=== PATIENT | female | born 1970 | race Hispanic/Latino ===

== ENCOUNTER 2019-12-09 15:32 | Emergency (ER) | payer BC, SELFPAY ==
[2019-12-09] MEDS ORDERED: LORazepam 2 MG/ML VIAL ONE (16:26)
[2019-12-09] MEDS ORDERED: KETOROLAC 30 MG/ML INJ ONE (16:26)
[2019-12-09] MEDS ORDERED: NA CHLORIDE 0.9% 1,000 ML ONE (16:26)
[2019-12-09 17:09] LABS: Absolute Lymphocytes (CBC) 4.8 K/uL (0.7-4.9); Basophils % 0.7 % (0-1.3); Hematocrit 36.8 % (36.0-45.0); Lymphocytes % 59.8 % (15.3-44.8); MPV 8.3 fL (7.6-11.3); RBC Red Blood Cell Count 4.02 M/uL (3.86-4.86)
[2019-12-09 17:25] LABS: Albumin 2.9 g/dL (3.4-5.0); Bilirubin Direct 0.3 mg/dL (0-0.2); Bilirubin Total 0.6 mg/dL (0.2-1.0); Potassium 3.5 mmol/L (3.5-5.1); Protein, Total 7.8 g/dL (6.4-8.2)
[2019-12-09 17:33] LABS: Urine Bacteria 20-50 /HPF (<20); Urine Culture Reflex Order REFLEXED; Urine Mucus 2+ /HPF (NONE SEEN); Urine RBC <5 /HPF (NONE SEEN)
[2019-12-09 17:34] LABS: Urine Blood NEGATIVE (NEG); Urine Glucose NEGATIVE (NEG); Urine Protein NEGATIVE (NEG); Urine Specific Gravity 1.025 (1.005-1.030)
--- NOTE | 2019-12-09 18:13 | RAD REPORT ---
EXAM DESCRIPTION: CT - Head Brain Wo Cont - 12/09/2019 6:07 pm CLINICAL HISTORY: HEADACHE Headache, drowsiness COMPARISON: No comparisons TECHNIQUE: All CT scans are performed using dose optimization technique as appropriate and may inclu de automated exposure control or mA/KV adjustment according to patient size. FINDINGS: No intracranial hemorrhage, hydrocephalus or extra-axial fluid collection.No areas of brai n edema or evidence of midline shift. The paranasal sinuses and mastoids are clear. The calvarium is intact. IMPRESSION: No acute intracranial abnormality.
--- NOTE | 2019-12-09 18:14 | RAD REPORT ---
EXAM DESCRIPTION: CT - Abdomen W Contrast CLINICAL HISTORY: headache, elevated liver enzymes Abdominal pain COMPARISON: No comparisons TECHNIQUE All CT scans are performed using dose optimization technique as appropriate and may includ e automated exposure control or mA/KV adjustment according to patient size. FINDINGS: The lower lung hernandez are clear. Small hiatal hernia. The liver demonstrates diffuse fatty infiltration. The spleen, pancreas, adrenal glands and kidneys a re within normal limits. No free fluid, bowel obstruction or free air. No significant adenopathy in the abdomen. No significant bony finding. IMPRESSION: Mild fatty liver.
[2019-12-09] MEDS ORDERED: NA CHLORIDE 0.9% 500 ML ONE (18:31)
--- NOTE | 2019-12-09 18:52 | ER ---
Nurse's Notes [facility] Name: Jaz Jaquez Age: 49 yrs Sex: Female : 1970 Arrival Date: 12/09/2019 Time: 15:36 Bed 20 Private MD: Diagnosis: Volume depletion;Fatty (change of) liver, not elsewhere classified;Headache;Urinary tract infection, site not specified Presentation: 12/08 15:47 Chief complaint: Patient states: [place] for 8 days with N/V. No fever. Coronavirus screen: ll1 Proceed with normal triage. Patient reports a cough. Patient denies shortness of breath or difficulty breathing. Patient denies measured and/or subjective temperature greater than 100.4F prior to today's visit. Patient denies travel on a cruise ship or to a country the [facility] currently lists as an affected area. Patient denies contact with known and/or suspected case of COVID-19. Ebola Screen: Patient denies travel to an Ebola-affected area in the 21 days before illness onset. Initial Sepsis Screen: Does the patient meet any 2 criteria? HR > 90 bpm. No. Patient's initial sepsis screen is negative. Does the patient have a suspected source of infection? No. Patient's initial sepsis screen is negative. Risk Assessment: Do you want to hurt yourself or someone else? Patient reports no desire to harm self or others. Onset of symptoms was December 01, 2019. 15:47 Method Of Arrival: Ambulatory ll1 15:47 Acuity: TEQUILA 3 ll1 Triage Assessment: 19:26 Pain: Also complains of nausea. Historical: - Allergies: 15:50 No Known Allergies; ll1 - PMHx: 15:50 Hypertension; anxiety/depression; seasonal allergies; ll1 - PSHx: 15:50 None; ll1 - Social history:: Patient/guardian denies using alcohol, street drugs, tobacco products. Screenin:18 Abuse screen: Denies threats or abuse. Nutritional screening: No deficits noted. Tuberculosis screening: No symptoms or risk factors identified. Fall Risk None identified. Assessment: 16:00 General: Appears in no apparent distress. Behavior is cooperative, restless. Pain: Complains of pain in occipital area Pain does not radiate. Pain currently is 9 out of 10 on a pain scale. Quality of pain is described as throbbing, Pain began 8 days ago Is continuous, Alleviated by nothing. Neuro: Level of Consciousness is awake, alert, Oriented to person, place, time, situation. Cardiovascular: Heart tones S1 S2 present Capillary refill < 3 seconds Patient's skin is warm and dry. Respiratory: Airway is patent Respiratory effort is even, unlabored, Respiratory pattern is regular, symmetrical. GI: Bowel sounds present X 4 quads. : No signs and/or symptoms were reported regarding the genitourinary system. EENT: No signs and/or symptoms were reported regarding the EENT system. Derm: No signs and/or symptoms reported regarding the dermatologic system. Musculoskeletal: No signs and/or symptoms reported regarding the musculoskeletal system. 16:30 Reassessment: IV inserted and medications administered at this time. No needs voiced at this time. 17:30 Reassessment: Pt resting with eyes closed and resp even and unlabored. Pt states that ah she is getting some relief at this time and feeling a little better. No needs voiced. 18:30 Reassessment: Awaiting radiology results at this time. No needs voiced. Pt still drowsy ah from medication. No needs voiced at this time. 19:30 Reassessment: discharge instructions given at this time. Educated Pt on new ah prescriptions. Pt voiced understanding. Pt wheeled to Private vehicle to have daughter drive her home. 20:09 Reassessment: pt requests a fax be sent with the work excuse from todays visit, a fax sg has been sent using hospital policy to [phone], intended for Jaz Jaquez. Vital Signs: 15:47 BP 125 / 80; Pulse 122; Resp 18; Temp 98.5; Pulse Ox 99% ; Pain 10/10; ll1 16:31 BP 103 / 74; Pulse 100; Resp 18; Pulse Ox 94% ; ah 17:00 BP 97 / 73; Pulse 102; Resp 18; Pulse Ox 91% ; ah 18:35 BP 106 / 77; Pulse 92; Resp 14; Pulse Ox 94% ; ah Matthews Coma Score: 18:54 Eye Response: spontaneous(4). Verbal Response: oriented(5). Motor Response: obeys snw commands(6). Total: 15. ED Course: 15:36 Patient arrived in ED. mr 15:43 Kayleigh Gonzalez FNP-C is [facility]. snw 15:43 Thony Toney MD is Attending Physician. snw 15:49 Triage completed. ll1 15:50 Arm band placed on. Patient placed in an exam room, on a stretcher. ll1 15:57 Deepika Green, RN is Primary Nurse. 16:10 Urine collected: clean catch specimen, clear, odell colored. Patient maintains SpO2 jp3 saturation greater than 95% on room air. 16:15 Inserted saline lock: 20 gauge in right antecubital area, using aseptic technique. ah 18:08 CT Abdomen - IV Contrast Only In Process Unspecified. EDMS 18:08 CT Head Brain wo Cont In Process Unspecified. EDMS 19:18 Patient has correct armband on for positive identification. Bed in low position. Call light in reach. Side rails up X2. 19:25 No provider procedures requiring assistance completed. 19:25 IV discontinued, Pressure dressing applied. Administered Medications: 16:35 Drug: NS 0.9% 1000 ml Route: IV; Rate: 1000 ml; Site: right antecubital; 19:14 Follow up: Response: No adverse reaction; IV Status: Completed infusion 16:35 Drug: TORadol - Ketorolac 15 mg Route: IVP; Site: right antecubital; 19:14 Follow up: Response: No adverse reaction; Pain is decreased 16:35 Drug: Ativan 1 mg Route: IVP; Site: right antecubital; 19:13 Follow up: Response: No adverse reaction; Pain is decreased; RASS: Drowsy (-1) 18:35 Drug: NS 0.9% 500 ml Route: IV; Rate: bolus; Site: right antecubital; 19:27 Follow up: IV Status: Completed infusion 19:13 Drug: Rocephin 1 grams Route: IV; Rate: calculated rate; Site: right antecubital; Outcome: 18:52 Discharge ordered by . snw 19:41 Discharged to home via wheelchair. 19:41 Condition: good 19:41 Discharge instructions given to patient, Instructed on discharge instructions, follow up and referral plans. medication usage, Demonstrated understanding of instructions, follow-up care, medications, Prescriptions given X 2. 19:43 Patient left the ED. Signatures: Dispatcher [employer] EDMS Go Ryder RN RN Kayleigh Dodson, BRAIDER SETTER-C BRAIDER SETTER-Csnw Karly Lan mr Nura Mark jp3 Deepika Green RN RN ah Lewis, Lynsay, RN RN ll1 Corrections: (The following items were deleted from the chart) 19:42 19:20 Reassessment: ronald cardenas
--- NOTE | 2019-12-09 18:53 | EDPHYS ---
Physician Documentation [facility] Name: Jaz Jaquez Age: 49 yrs Sex: Female : 1970 Arrival Date: 12/09/2019 Time: 15:36 Bed 20 Private MD: ED Physician Thony Toney HPI: 12/08 15:51 This 49 yrs old Female presents to ER via Ambulatory with complaints of snw Headache. 15:51 The patient complains of pain to the left occipital area, left base of the skull, right snw occipital area and right base of the skull. The patient describes the headache as a pressure, throbbing. Onset: The symptoms/episode began/occurred gradually, 8 day(s) ago, and became persistent. Associated signs and symptoms: Pertinent positives: nausea. Severity of symptoms: At its worst the pain was moderate, "similar to past headaches", but headaches don't usually last this long. Headache History: The patient has had previous headaches and this one is similar to previous episodes. The symptoms are alleviated by nothing. The patient has experienced similar episodes in the past, but they usually go away. The patient has been recently seen by a physician: the patient's primary care provider, Dr. Esparza with similar presenting complaints, was given a prescription for pain medications, Tramadol. Historical: - Allergies: 15:50 No Known Allergies; ll1 - PMHx: 15:50 Hypertension; anxiety/depression; seasonal allergies; ll1 - PSHx: 15:50 None; ll1 - Social history:: Patient/guardian denies using alcohol, street drugs, tobacco products. ROS: 15:51 Constitutional: Negative for fever, chills, and weight loss, Eyes: Negative for injury, snw pain, redness, and discharge, ENT: Negative for injury, pain, and discharge, Neck: Negative for injury, pain, and swelling, Cardiovascular: Negative for chest pain, palpitations, and edema, Respiratory: Negative for shortness of breath, cough, wheezing, and pleuritic chest pain, Abdomen/GI: Negative for abdominal pain, nausea, vomiting, diarrhea, and constipation, Back: Negative for injury and pain, : Negative for injury, bleeding, discharge, and swelling, MS/Extremity: Negative for injury and deformity, Skin: Negative for injury, rash, and discoloration, Psych: Negative for depression, anxiety, suicide ideation, homicidal ideation, and hallucinations. 15:51 Neuro: Positive for headache, of the scalp. Exam: 15:51 Constitutional: This is a well developed, well nourished patient who is awake, alert, snw and in no acute distress. Head/Face: Normocephalic, atraumatic. Eyes: Pupils equal round and reactive to light, extra-ocular motions intact. Lids and lashes normal. Conjunctiva and sclera are non-icteric and not injected. Cornea within normal limits. Periorbital areas with no swelling, redness, or edema. ENT: Nares patent. No nasal discharge, no septal abnormalities noted. Tympanic membranes are normal and external auditory canals are clear. Oropharynx with no redness, swelling, or masses, exudates, or evidence of obstruction, uvula midline. Mucous membranes moist. Neck: Trachea midline, no thyromegaly or masses palpated, and no cervical lymphadenopathy. Supple, full range of motion without nuchal rigidity, or vertebral point tenderness. No Meningismus. Chest/axilla: Normal chest wall appearance and motion. Nontender with no deformity. No lesions are appreciated. Respiratory: Lungs have equal breath sounds bilaterally, clear to auscultation and percussion. No rales, rhonchi or wheezes noted. No increased work of breathing, no retractions or nasal flaring. Abdomen/GI: Soft, non-tender, with normal bowel sounds. No distension or tympany. No guarding or rebound. No evidence of tenderness throughout. Back: No spinal tenderness. No costovertebral tenderness. Full range of motion. Skin: Warm, dry with normal turgor. Normal color with no rashes, no lesions, and no evidence of cellulitis. MS/ Extremity: Pulses equal, no cyanosis. Neurovascular intact. Full, normal range of motion. Neuro: Awake and alert, GCS 15, oriented to person, place, time, and situation. Cranial nerves II-XII grossly intact. Motor strength 5/5 in all extremities. Sensory grossly intact. Cerebellar exam normal. Normal gait. Psych: Awake, alert, with orientation to person, place and time. Behavior, mood, and affect are within normal limits. 15:51 Cardiovascular: Rate: tachycardic, Rhythm: regular, Pulses: no pulse deficits are appreciated. Vital Signs: 15:47 BP 125 / 80; Pulse 122; Resp 18; Temp 98.5; Pulse Ox 99% ; Pain 10/10; ll1 16:31 BP 103 / 74; Pulse 100; Resp 18; Pulse Ox 94% ; ah 17:00 BP 97 / 73; Pulse 102; Resp 18; Pulse Ox 91% ; ah 18:35 BP 106 / 77; Pulse 92; Resp 14; Pulse Ox 94% ; ah Adel Coma Score: 18:54 Eye Response: spontaneous(4). Verbal Response: oriented(5). Motor Response: obeys snw commands(6). Total: 15. MDM: 15:43 Patient medically screened. gabby 18:54 Data reviewed: vital signs, nurses notes, lab test result(s), radiologic studies, CT snw scan. Data interpreted: Pulse oximetry: on room air is 94 %. Interpretation: acceptable. Counseling: I had a detailed discussion with the patient and/or guardian regarding: the historical points, exam findings, and any diagnostic results supporting the discharge/admit diagnosis, lab results, radiology results, the need for outpatient follow up, to return to the emergency department if symptoms worsen or persist or if there are any questions or concerns that arise at home. Response to treatment: the patient's symptoms have markedly improved after treatment. Special discussion: Based on the history and exam findings, there is no indication for further emergent testing or inpatient evaluation. I discussed with the patient/guardian the need to see the neurologist for further evaluation of the symptoms. I discussed with the patient/guardian the need to see the primary care provider for further evaluation of the symptoms. 12/08 15:55 Order name: Basic Metabolic Panel; Complete Time: 17:34 snw 12/08 15:55 Order name: CBC with Diff w 12/08 15:55 Order name: Hepatic Function; Complete Time: 17:34 snw 12/08 15:55 Order name: Urine Culture snw 12/08 15:55 Order name: Urine Microscopic Only; Complete Time: 17:35 snw 12/08 16:55 Order name: Urine Dipstick--Ancillary (enter results); Complete Time: 17:35 em1 12/08 16:55 Order name: Urine --Ancillary (enter results); Complete Time: 17:35 em1 12/08 17:36 Order name: CT Abdomen - IV Contrast Only; Complete Time: 18:17 snw 12/08 17:36 Order name: CT Head Brain wo Cont; Complete Time: 18:15 snw 12/08 15:55 Order name: Labs collected and sent snw 12/08 15:55 Order name: Urine Dipstick-Ancillary (obtain specimen); Complete Time: 16:51 snw 12/08 18:18 Order name: Recheck Vital Signs; Complete Time: 18:37 snw Administered Medications: 16:35 Drug: NS 0.9% 1000 ml Route: IV; Rate: 1000 ml; Site: right antecubital; 19:14 Follow up: Response: No adverse reaction; IV Status: Completed infusion 16:35 Drug: TORadol - Ketorolac 15 mg Route: IVP; Site: right antecubital; 19:14 Follow up: Response: No adverse reaction; Pain is decreased 16:35 Drug: Ativan 1 mg Route: IVP; Site: right antecubital; 19:13 Follow up: Response: No adverse reaction; Pain is decreased; RASS: Drowsy (-1) 18:35 Drug: NS 0.9% 500 ml Route: IV; Rate: bolus; Site: right antecubital; 19:27 Follow up: IV Status: Completed infusion 19:13 Drug: Rocephin 1 grams Route: IV; Rate: calculated rate; Site: right antecubital; Disposition: 12/09 11:32 Co-signature as Attending Physician, Thony Toney MD I agree with the assessment and gabby plan of care. Disposition: 12/09/19 18:52 Discharged to Home. Impression: Volume depletion, Fatty (change of) liver, not elsewhere classified, Headache, Urinary tract infection, site not specified. - Condition is Stable. - Discharge Instructions: Dehydration, Adult, General Headache Without Cause, Urinary Tract Infection, Adult, Rehydration, Adult, Nonalcoholic Fatty Liver Disease Diet. - Prescriptions for Macrobid 100 mg Oral Capsule - take 1 capsule by ORAL route every 12 hours for 7 days; 14 capsule. promethazine 25 mg Oral Tablet - take 1 tablet by ORAL route every 6 hours As needed; 20 tablet. - Work release form, Medication Reconciliation Form, Thank You Letter, Antibiotic Education, Prescription Opioid Use form. - Follow up: Emergency Department; When: As needed; Reason: Worsening of condition. Follow up: Private Physician; When: 2 - 3 days; Reason: Recheck today's complaints, Continuance of care, Re-evaluation by your physician. Signatures: Dispatcher [employer] EDThony Rollins MD MD cha Therrien, Shelly, COMMUNITY HEALTH COORDINATOR-C COMMUNITY HEALTH COORDINATOR-Csnw Deepika Green, RN RN Thierry Arroyo RN RN ll1 Corrections: (The following items were deleted from the chart) 12/08 19:43 18:52 12/09/2019 18:52 Discharged to Home. Impression: Volume depletion; Fatty (change ah of) liver, not elsewhere classified; Headache; Urinary tract infection, site not specified. Condition is Stable. Forms are Medication Reconciliation Form, Thank You Letter, Antibiotic Education, Prescription Opioid Use. Follow up: Emergency Department; When: As needed; Reason: Worsening of condition. Follow up: Private Physician; When: 2 - 3 days; Reason: Recheck today's complaints, Continuance of care, Re-evaluation by your physician. snw
[2019-12-09] MEDS ORDERED: CEFTRIAXONE/SWI 1gm 1 GM/10 ML SYR ONE (19:07)
[2019-12-09 19:52] VITALS: TEMP 98.5
[2019-12-09 19:56] VITALS: BP 106/77; O2SAT 94
[2019-12-09 22:33] LABS: Blood Morphology Comment NOT SEEN (NOT SEEN); Platelet Estimate ADEQ; Smudge Cells PRESENT
== END 2019-12-09 19:43 | disposition home or self-care (01) ==
LOC: ER 15:32
DX: E86.9 Volume depletion, unspecified (principal); N39.0 Urinary tract infection, site not specified; K76.0 Fatty (change of) liver, not elsewhere classified; I10 Essential (primary) hypertension
CPT/HCPCS: 36415; 70450; 74160; 80048; 80076; 81003; 81015; 81025; 85025; 87086; 87088; 96361; 96374; 96375; 99284; J0696; J7030; J7040; Q9967

== ENCOUNTER 2023-06-15 11:53 | Emergency (ER) | payer OTHER ==
--- OUTSIDE RECORDS SUMMARY | 2023-06-15 11:58 | XMS REPORT | Continuity of Care Document ---
:1970 Author Organization [facility] t Address [address] [place] [address] [place] [id number] Care Team Providers Name Role Phone [email or web address] Attending Clinician Unavailable Robbin Lewis Attending Clinician [email or web address] Admitting Clinician Unavailable Problems Condition Condition Condition Status Onset Resolution Last Treating Co mments Source Name Details Category Date Date Treatment Clinician Date Hypertensi Hypertens Problem Active 2020-02-12 Memoria ve rajeev 21:20:03 l disorder, disorder, Herm vesta systemic systemic arterial arterial (disorder) (disorder) Active Problem 02/12/2020 [facility] Simple Simple Problem Active 2020-02-12 Demarcus qing obesity obesity 21:20:03 l (disorder) (disorder) He rmann Active Problem 02/12/2020 [facility] Headache Headache Problem Active 2020-02-12 Memoria (finding) (finding) 21:20:03 l Active Anthony Problem 02/12/2020 [facility] Allergies, Adverse Reactions, Alerts This patient has no known allergies or adverse reactions. Social History Social Habit Start Date Stop Date Quantity Comments Source Social History 2019-12-29 2019-12-29 [facility] 14:28:11 14:28:11 Medications Ordered Filled Start Stop Current Ordering Indication Dosage Frequency Signature Comments Components Source Medication Medication Date Date Medication? Clinician (SIG) Name Name amLODIPine Yes 5 mg = 1 Mem oria 5 mg oral 5-20 tab, PO, l tablet 14:05: Daily, 0 Anthony 00 Refill(s) Hydrochloro 2020- Yes 1 tab, PO, Memoria thiazide 25 5-20 Daily, 0 l MG / 14:05: Refill(s) Anthony Olmesartan 00 medoxomil 40 MG Oral Tablet Paroxetine Yes 10 mg = 1 Me moria Hydrochlori 5-20 tab, PO, l de 10 MG 14:05: Daily, 0 Haylie nn Oral Tablet 00 Refill(s) montelukast Yes 10 mg = 1 M emoria 10 mg oral 5-20 tab, PO, l tablet 14:05: Daily, 0 Anthony 00 Refill(s) Vital Signs Vital Name Observation Time Observation Value Comments Source Systolic (mm Hg) 2019-12-29 14:01:00 Demarcus riarodney [facility] Diastolic (mm Hg) 2019-12-29 [facility] 2019-12-29 14:01:00 [facility] Resp[facility] 2019-12-29 [facility] 2019-12-29 14:01:00 152.4 cm [facility] Weight 2019-12-29 14:01:00 [facility] BMI Calculated 2019-12-29 14:01:00 Joss ga Anthony Procedures This patient has no known procedures. Encounters Start End Encounter Admission Attending Care Care Encounter Source Date/Time Date/Time Type Type Clinicians Facility Department ID 2023-06-10 2023-06-10 Outpatient [email or web address] PRIV PRIV [id number] [facility] 00:00:00 00:00:00 Alyssa [id number] [facility] 2020-02-10 2020-02-10 Ambulatory nullFlavo MNA [id number] Memoria 14:15:00 14:15:00 Pre-Reg r Neurology 02 l Mago Cruz 2020-02-10 2020-02-10 Ambulatory nullFlavo MNA [id number] Memoria 14:15:00 14:15:00 Pre-Reg r Neurology 01 l Mago Cruz 2020-02-10 2020-02-10 Outpatient MHIE BRYON [id number] [facility] 09:15:00 09:15:00 02 rodney Cruz 2020-02-10 2020-02-10 Outpatient IE IE [id number] Memoria 09:15:00 09:15:00 01 rodney rCuz 2020-02-10 2020-02-10 [id number] 09:15:00 09:15:00 Robbin Conrad 2020-02-10 2020-02-10 [id number] 09:15:00 09:15:00 Robbin Houston 2019-12-29 2019-12-30 Outpatient nullFlavo MNA [id number] Memoria 14:00:00 04:59:59 r Neurology 00 l Mago Cruz 2019-12-29 2019-12-29 [facility] [id number] 09:00:00 23:59:59 Robbin Houston 2019-12-29 2019-12-29 Outpatient IE IE [id number] Memoria 09:00:00 09:00:00 00 l Anthony Results This patient has no known results.
[2023-06-15] MEDS ORDERED: TDAP (DIPHTH,PERTUSS(ACELL),TET VAC) 0.5 ML VIAL IMVAC ONE (12:22)
[2023-06-15] MEDS ORDERED: DERMABOND SKIN ADHESIVE TOP ONE (12:57)
--- NOTE | 2023-06-15 13:18 | EDPHYS ---
Physician Documentation [facility] Name: Jaz Jaquez Age: 53 yrs Sex: Female : 1970 Arrival Date: 06/15/2023 Time: 11:53 Bed 8 Private MD: ED Physician Reji Schumacher HPI: 06/15 12:03 This 53 yrs old Female presents to ER via Ambulatory with complaints of Wrist jh7 laceration. 12:03 Onset: The symptoms/episode began/occurred acutely. Associated signs and symptoms: The jh7 patient has no apparent associated signs or symptoms. Patient was taking apart a trampoline and accidentally punctured her left wrist with a kitchen knife. Reports bleeding after the incident. History of hypertension.. 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 - Social history:: Smoking status: Patient denies any tobacco usage or history of. ROS: 12:03 Constitutional: Negative for fever, chills, and weight loss, Cardiovascular: Negative jh7 for chest pain, palpitations, and edema, Respiratory: Negative for shortness of breath, cough, wheezing, and pleuritic chest pain, Abdomen/GI: Negative for abdominal pain, nausea, vomiting, diarrhea, and constipation, MS/Extremity: Negative for injury and deformity, Neuro: Negative for headache, weakness, numbness, tingling, and seizure, 12:03 Skin: Positive for laceration(s), 12:03 All other systems are negative, Exam: 12:03 Constitutional: This is a well developed, well nourished patient who is awake, alert, jh7 and in no acute distress. Cardiovascular: Regular rate and rhythm with a normal S1 and S2. No gallops, murmurs, or rubs. Normal PMI, no JVD. No pulse deficits. Respiratory: Lungs have equal breath sounds bilaterally, clear to auscultation and percussion. No rales, rhonchi or wheezes noted. No increased work of breathing, no retractions or nasal flaring. Back: No spinal tenderness. No costovertebral tenderness. Full range of motion. MS/ Extremity: Pulses equal, no cyanosis. Neurovascular intact. Full, normal range of motion. Neuro: Awake and alert, GCS 15, oriented to person, place, time, and situation. Motor strength 5/5 in all extremities. Sensory grossly intact. Normal gait. 12:03 Skin: injury, laceration(s), the wound is approximately 0.5 cm(s), of the Lateral aspect of left wrist, 2-3 cm of swelling noted around the injury, Vital Signs: 12:03 BP 131 / 85; Pulse 94; Resp 18; Temp 96.8; Pulse Ox 96% on R/A; Weight 74.84 kg; Height cm10 4 ft. 11 in. ; Pain 6/10; 12:03 Body Mass Index 33.33 (74.84 kg, 149.86 cm) cm10 12:03 Pain Scale: Adult cm10 Laceration: 12:45 Wound Repair of 0.5cm ( 0.2in ) subcutaneous laceration to Lateral aspect of left jh7 wrist. Distal neuro/vascular/tendon intact. Wound prep: Simple cleansing by nurse. Skin closed using Dermabond. Dressed with non-adherent dressing. Patient tolerated well. MDM: 11:58 Patient medically screened. [facility] 12:45 Differential diagnosis: Superficial laceration. Data reviewed: vital signs, nurses [facility] notes, radiologic studies, plain films. Counseling: I had a detailed discussion with the patient and/or guardian regarding the historical points, exam findings, and any diagnostic results supporting the discharge/admit diagnosis, to return to the emergency department if symptoms worsen or persist or if there are any questions or concerns that arise at home. Special discussion: Advised to avoid getting the wound wet for 48 hours due to Dermabond.. 06/15 12:41 Order name: XRAY Forearm LEFT [facility] 06/15 12:02 Order name: Wound Care; Complete Time: 12:08 [facility] 06/15 12:41 Order name: Dermabond; Complete Time: 12:43 [facility] Administered Medications: 12:11 Drug: Tetanus-Diphtheria Toxoid IM Adult 0.5 ml IM once; Provide Vaccine Information mb9 Statement (VIS). {Cartographic Technician: IM5; Exp: Sat Jan 01 2025; Lot #: [id number]; Series: 1 of 1; Patient Consent: Obtained; Date/Time: ; Source Name: Jaz Jaquez; Source Relationship: Self; Address Information: [address] [place] [address], [facility] [address]; ; Education: Provided; VIS Presented Date: ; VIS Publication: Tetanus/Diphtheria (Td) VIS 09/14/2013 (historic)} Route: IM; Site: left deltoid; Disposition: 06/16 09:04 Co-signature as Attending Physician, Reji Schumacher MD I reviewed the patient's care rn provided by the Advanced Practice Provider and agree with the diagnosis and treatment plan. Disposition Summary: 06/15/23 13:18 Discharge Ordered Notes: Location: Home [facility] Problem: new [facility] Symptoms: have improved [facility] Condition: Stable [facility] Diagnosis - Arm Laceration Left/ Open wound of forearm [facility] Followup: [facility] - With: Private Physician - When: 2 - 3 days - Reason: Recheck today's complaints Discharge Instructions: - Discharge Summary Sheet [facility] - Nonsutured Laceration Care [facility] Forms: - Medication Reconciliation Form [facility] - Thank You Letter [facility] - Patient Portal Instructions [facility] - Leadership Thank You Letter [facility] Signatures: Dispatcher [employer] EDReji Gutierrez MD MD rn Hadash, Jennifer, FNP LITHOGRAPHY CONTACT WORKER [facility] Karly Carolina, RN RN mb9 Graciela Madrid RN RN cm10
--- NOTE | 2023-06-15 13:18 | ER ---
Nurse's Notes [facility] Name: Jaz Jaquez Age: 53 yrs Sex: Female : 1970 Arrival Date: 06/15/2023 Time: 11:53 Bed 8 Private MD: Diagnosis: Arm Laceration Left/ Open wound of forearm Presentation: 06/15 12:03 Chief complaint: Patient states: cut to left wrist with kitchen knife. bleeding cm10 controlled at this time. Coronavirus screen: Vaccine status: Patient reports receiving the 2nd dose of the covid vaccine. Client denies travel out of the [place] in the last 14 days. Ebola Screen: Patient denies travel to an Ebola-affected area in the 21 days before illness onset. No symptoms or risks identified at this time. Initial Sepsis Screen: Does the patient meet any 2 criteria? No. Patient's initial sepsis screen is negative. Does the patient have a suspected source of infection? No. Patient's initial sepsis screen is negative. Risk Assessment: Do you want to hurt yourself or someone else? Patient reports no desire to harm self or others. Onset of symptoms was June 15, 2023. 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 - Social history:: Smoking status: Patient denies any tobacco usage or history of. Screenin:13 [facility] ED Fall Risk Assessment (Adult) History of falling in the last 3 months, mb9 including since admission No falls in past 3 months (0 pts) Confusion or Disorientation No (0 pts) Intoxicated or Sedated No (0 pts) Impaired Gait No (0 pts) Mobility Assist Device Used No (0 pt) Altered Elimination No (0 pt) Score/Fall Risk Level 0 - 2 = Low Risk Oriented to surroundings, Maintained a safe environment, Educated pt \T\ family on fall prevention, incl call for assistance when getting out of bed. Abuse screen: Denies threats or abuse. Nutritional screening: No deficits noted. Tuberculosis screening: No symptoms or risk factors identified. Assessment: 12:12 General: Appears in no apparent distress. Behavior is calm, cooperative. Pain: mb9 Complains of pain in left hand. Neuro: Arredondo Agitation-Sedation Scale (RASS): 0 - Alert and Calm Level of Consciousness is awake, alert, obeys commands, Oriented to person, place, time, situation, Appropriate for age. Cardiovascular: Patient's skin is warm and dry. Respiratory: Airway is patent Respiratory effort is even, unlabored, Respiratory pattern is regular, symmetrical. GI: No signs and/or symptoms were reported involving the gastrointestinal system. : No signs and/or symptoms were reported regarding the genitourinary system. EENT: No signs and/or symptoms were reported regarding the EENT system. Derm: Skin is pink, warm \T\ dry. Musculoskeletal: Range of motion: intact in all extremities. Injury Description: Laceration sustained to left hand is clean, superficial, 0.5 to 2.5 cm long, not bleeding. 13:27 Reassessment: Patient appears in no apparent distress at this time. Patient and/or iw family updated on plan of care and expected duration. Pain level reassessed. Patient is alert, oriented x 3, equal unlabored respirations, skin warm/dry/pink. Patient states feeling better. Patient states symptoms have improved. Vital Signs: 12:03 BP 131 / 85; Pulse 94; Resp 18; Temp 96.8; Pulse Ox 96% on R/A; Weight 74.84 kg; Height cm10 4 ft. 11 in. ; Pain 6/10; 12:03 Body Mass Index 33.33 (74.84 kg, 149.86 cm) cm10 12:03 Pain Scale: Adult cm10 ED Course: 11:57 Patient arrived in ED. mr 11:58 Nadira Long FNP [facility] 11:58 Reji Schumacher MD is Attending Physician. 7 12:04 Triage completed. cm10 12:04 Arm band placed on Patient placed in an exam room, on a stretcher. cm10 12:11 Karly Carolina, RN is Primary Nurse. mb9 12:13 Placed in gown. Bed in low position. Call light in reach. Side rails up X 1. Client mb9 placed on continuous cardiac and pulse oximetry monitoring. NIBP monitoring applied. 12:53 XRAY Forearm LEFT In Process Unspecified. EDMS 13:27 Provided Education on: . iw 13:27 No provider procedures requiring assistance completed. Patient did not have IV access iw during this emergency room visit. Administered Medications: 12:11 Drug: Tetanus-Diphtheria Toxoid IM Adult 0.5 ml IM once; Provide Vaccine Information mb9 Statement (VIS). {Sweep Molder: [employer]; Exp: Sat Jan 01 2025; Lot #: [id number]; Series: 1 of 1; Patient Consent: Obtained; Date/Time: ; Source Name: Jaz Jaquez; Source Relationship: Self; Address Information: [address] [place] [address]; ; Education: Provided; VIS Presented Date: ; VIS Publication: Tetanus/Diphtheria (Td) VIS 09/14/2013 (historic)} Route: IM; Site: left deltoid; Medication: 12:13 VIS not applicable for this client. mb9 Outcome: 13:18 Discharge ordered by . 7 13:27 Discharged to home ambulatory, with family, iw 13:27 Condition: good 13:27 Discharge instructions given to patient, family, Instructed on discharge instructions, follow up and referral plans. Demonstrated understanding of instructions, follow-up care, 13:28 Patient left the ED. iw Signatures: Dispatcher [employer] EDAR Karly Lan, Reg Reg Gabriella Scott RN RN iw Nadira Long FNP FNP [facility] Karly Carolina RN RN mb9 Graciela Madrid, RN RN cm10
[2023-06-15 13:55] VITALS: BP 131/85; TEMP 96.8; O2SAT 96
--- NOTE | 2023-06-15 14:17 | RAD REPORT ---
EXAM DESCRIPTION: RAD - Forearm Left - 06/15/2023 12:51 pm CLINICAL HISTORY: SWELLING COMPARISON: No comparisons TECHNIQUE: Left forearm, 2 views. FINDINGS: No fracture is identified. There is no dislocation or periosteal reaction noted. No foreign body or other soft tissue abnormality. IMPRESSION: Negative left forearm radiographs.
== END 2023-06-15 13:28 | disposition home or self-care (01) ==
LOC: ER 11:53
PROC: 0HQEXZZ Repair Left Lower Arm Skin, External Approach (ICD-10-PCS; principal; 2023-06-15)
DX: S61.512A Laceration without foreign body of left wrist, initial encounter (principal); Z23 Encounter for immunization
CPT/HCPCS: 90471; 99284